=== PATIENT | male | born 1995 | race Caucasian/White ===

== ENCOUNTER 2020-03-28 14:57 | Emergency (ER) | payer OTHER, SELFPAY ==
[2020-03-28 14:58] VITALS: BP 143/62; PULSE 56; RESP 16; TEMP 36.6; O2SAT 98; BMI 26.6
--- NOTE | 2020-03-28 15:23 | ED.DCSUM_ITS ---
History of Present Illness Informant: Patient Occurred: Today Mechanism/Context: Incised Onset: Today Context: Sudden Onset Timing: Continuous Quality of Pain: Sharp Location: righ thigh Current Severity: Mild Maximum Severity: Mild Worsened by: movement Relieved by: rest Associated Symptoms: Negative for: Parasthesia, Weakness, Loss of Funtion Narrative: 24-year-old male presents to the emergency department with a laceration on his right thigh. Patient was working on his roof at home removing a rubber covering over the vent over his bathroom and he was using a knife and it slipped and he cut his right thigh through his jeans. He has had some mild bleeding but he was able to resolve it mostly with manual pressure. He denies numbness or tingling. He is able to walk normally. His last tetanus was about 5 years ago. He denies any other injuries. Tetanus Immunization: <5 years Prior similar symptoms: No Recent Illness/Hospitalization: No <Luis Antonio Diego - Last Filed: 03/28/20 15:23> <Devon Monroy - Last Filed: 03/28/20 15:44> Chief Complaint: Laceration Past Medical History Prior records reviewed: Yes Past Medical History: None Surgical History: no surgical history Lives: With Family Smoking Status: Never smoker Alcohol: Occasional Drugs: None <Luis Antonio Diego - Last Filed: 03/28/20 15:23> <Devon Monroy - Last Filed: 03/28/20 15:44> - Allergies and Home Meds Allergies/Adverse Reactions: Allergies No Known Allergies Allergy (Verified 03/28/20 14:59) Primary Care Physician: Oswaldo Finch MD [Primary Care Provider] - 10-14 Days suture removal Review of Systems All systems negative except as indicated General: Denies: Chills, Fever, Malaise Eyes: Denies: Visual changes - bilaterally, Blurred Vision - bilaterally, Diplopia ENT: Denies: Rhinorrhea, Sore throat Cardiovascular: Denies: Chest pain, Palpitations, Heart racing Respiratory: Denies: Dyspnea, Cough, Sputum, Dyspnea on exertion, Orthopnea, Paroxysmal nocturnal dyspnea Gastrointestinal: Denies: Abdominal pain, Nausea, Vomiting, Diarrhea Genitourinary: Denies: Dysuria, Hematuria, Frequency Musculoskeletal: Denies: Myalgias, Arthralgias, Neck pain Skin: Reports: Abrasions. Denies: Rash, Abscess, Wounds Neurological: Denies: Headache, Weakness, Parasthesia, Numbness Hematologic: Denies: Easy bruising, Easy bleeding <Luis Antonio Diego - Last Filed: 03/28/20 15:23> Physical Exam Vital Signs/Narrative: Vital Signs Temp Pulse Resp BP Pulse Ox 03/28/20 14:58 97.8 F 56 L 16 143/62 H 98 Inital Vital Signs reviewed: Yes - Extremity Exam Right Femur: - - 1.5 cm laceration to the right anterior thigh, mid thigh. It is superficial. It is linear. There is no active bleeding. He has normal flexion and extension actively at the right hip and knee. He is neurovascularly intact distally. General: Well nourished, Well developed Head: Normocephalic, Atraumatic Eyes: Perrl, EOMI ENT: No Trauma, Moist Mucous Membranes Neck: Nontender, Full ROM Cardiovascular: Regular rate, Regular rhythm, No murmurs Respiratory: No distress, CTA bilaterally, Chest nontender Abdomen: Soft, Nontender, Nondistended, Normal bowel sounds, No masses Back: Nontender Skin: Normal color, No rash, Trauma Neurological: Alert, Oriented x3 Psychological: Normal affect, Normal Mood <Luis Antonio Diego - Last Filed: 03/28/20 15:23> Vital Signs/Narrative: Vital Signs Temp Pulse Resp BP Pulse Ox 03/28/20 14:58 97.8 F 56 L 16 143/62 H 98 Skin: Trauma - Correction to above: distal dorsal anterior right thigh laceration 2cm, linear, clean, SQ. <Devon Monroy - Last Filed: 03/28/20 15:44> Diagnostic/Tx/Re-eval - Medical Decision Making Patient's tetanus is up-to-date. Laceration was anesthetized locally with lidocaine. It was then thoroughly irrigated with approximately 100 cc of sterile saline with a pressure wash syringe. Was then cleansed with chlorhexidine. A total of 3 sutures were used, Ethilon, #3-0. Bacitracin and dressing were applied. I discussed with patient proper wound care as well as signs of infection to monitor for and he was advised to have these removed in 10 to 14 days or return for worsening symptoms which were discussed. <Luis Antonio Diego - Last Filed: 03/28/20 15:23> - Medical Decision Making Seen and evaluated independently and in conjunction with physician assistant commissioner. Agree with notes above unless documented otherwise. 2 cm laceration repaired well with 3 interrupted sutures, thoroughly cleansed and irrigated. Patient states it was a short knife, laceration caused by sort of a shallow puncture wound, it was clean and thoroughly cleansed and irrigated, I do not think antibiotics are required, discussed with the patient to watch for signs of infection, and keep it covered with antibiotic ointment. He is comfortable with that plan. <Devon Monroy - Last Filed: 03/28/20 15:44> Procedures - Lacerations No standard instances Length: 1.5 cm Depth: Skin Shape: Linear Prep: Sterile Conditions, Chlorhexadine Laceration repair: Lidocaine, Local, Skin sutures Irrigated (ml): 100 Number of Sutures/Tamra: 3 Suture Information: Ethilon, Simple, 4-0 <Luis Antonio Diego - Last Filed: 03/28/20 15:23> ED Disposition <Luis Antonio Diego - Last Filed: 03/28/20 15:23> <Devon Monroy - Last Filed: 03/28/20 15:44> - Plan for ED Patient: Disposition: Home or Assisted Living Diagnosis: Laceration of right thigh without complication Instructions: ED Laceration Ext Sutr Stap Tape Referrals: Oswaldo Finch MD [Primary Care Provider] - 10-14 Days suture removal
== END 2020-03-28 15:52 | disposition home or self-care (01) ==
LOC: ED 15:40
PROVIDERS: Emergency Provider Physician Assistant Medical
DX: S71.111A Laceration without foreign body, right thigh, initial encounter (principal); W26.0XXA Contact with knife, initial encounter; Y93.E9 Activity, other interior property and clothing maintenance; Y92.009 Unspecified place in unspecified non-institutional (private) residence as the place of occurrence of the external cause; Y99.9 Unspecified external cause status
CPT/HCPCS: 12001; 99282